=== PATIENT | female | born 1945 | race Caucasian/White ===

== ENCOUNTER 2017-09-18 10:56 | Emergency (ER) | payer OTHER ==
[~2017-09-18] VITALS: Wt 85.7 kg
[~2017-09-18 10:56] MED LIST: BUSPAR DIVIDOSE15 MG PO; CALCIUM WITH D1 CTB PO; EMPIRIN325 MG PO; LEXAPRO10 MG PO; LISINOPRIL10 MG PO; METOPROLOL SR50 MG PO; MULTIVITAMIN1 CTB PO; OMEGA 31000 MG PO; PLAVIX75 MG PO; PRILOSEC20 MG PO; SIMVASTATIN80 MG PO
[2017-09-18 11:01] VITALS: BP 146/47
[2017-09-18] MEDS ORDERED: Synthroid,Levo25 MCG PO (11:02)
== END 2017-09-18 13:26 | disposition home or self-care (01) ==
LOC: ED 10:56
DX: Z04.1 Encounter for examination and observation following transport accident (principal); R51 Headache; M54.5 Low back pain; M25.511 Pain in right shoulder; Z95.1 Presence of aortocoronary bypass graft; Z95.5 Presence of coronary angioplasty implant and graft; Z98.890 Other specified postprocedural states; Z98.51 Tubal ligation status; Z79.899 Other long term (current) drug therapy; Z88.5 Allergy status to narcotic agent; Z88.0 Allergy status to penicillin; Z79.82 Long term (current) use of aspirin; Z79.01 Long term (current) use of anticoagulants; V49.88XA Car occupant (driver) (passenger) injured in other specified transport accidents, initial encounter; Y93.89 Activity, other specified; Y92.413 State road as the place of occurrence of the external cause; Y99.9 Unspecified external cause status

== ENCOUNTER → 2018-02-27 | Outpatient (CLI) | payer OTHER ==
[~2018-02-27] MED LIST changes: +Synthroid,Levo25 MCG PO
[2018-02-27 13:09] LABS: CHLORIDE 107 mmol/L (98-107); POTASSIUM 5.1 mmol/L (3.5-5.1); SODIUM 140 mmol/L (136-145)
[2018-02-27 13:32] LABS: ALBUMIN 3.7 gm/dl (3.1-4.5); ALKALINE PHOSPHATASE 98 U/L (45-117); BUN 20 mg/dl (7-24); CHOLESTEROL 305 mg/dL (<200); CREATININE 0.94 mg/dL (0.55-1.02); FREE T4 0.68 ng/dl (0.76-1.46); HDL CHOLESTEROL 36 mg/dl (40-60); LDL CHOLESTEROL 222 mg/dL (9-159); SGOT/AST 15 IU/L (3-35); SGPT/ALT 16 U/L (12-78); TRIGLYCERIDES 233 mg/dl (<150); VLDL CHOLESTEROL 47 mg/dL (6-40)
[2018-02-28 06:07] LABS: FREE T3 010389 2.6 pg/mL (2.0-4.4)
[2018-03-03 14:10] LABS: T3 REVERSE 070104 7.6 ng/dL (9.2-24.1)
== END | disposition home or self-care (01) ==
LOC: LAB 12:05
PROVIDERS: Nurse Practitioner
DX: I25.10 Atherosclerotic heart disease of native coronary artery without angina pectoris (principal); E78.2 Mixed hyperlipidemia; R73.09 Other abnormal glucose; E27.9 Disorder of adrenal gland, unspecified; E55.9 Vitamin D deficiency, unspecified; E03.9 Hypothyroidism, unspecified

== ENCOUNTER → 2019-04-25 | Outpatient (CLI) | payer OTHER ==
[2019-04-25 12:05] LABS: BASO # 0.1 10*3/uL (0.0-0.1); EOS # 0.3 10*3/uL (0.0-0.4); EOS % 4.1 % (1.0-4.0); HEMATOCRIT 37.9 % (37.0-47.0); HEMOGLOBIN 11.4 g/dl (12.0-16.0); LYMPH # 1.6 10*3/uL (1.3-4.4); LYMPH % 19.3 % (27.0-41.0); MEAN CELL VOLUME 92.4 fl (81.0-99.0); MEAN CORPUSCULAR HGB 27.8 pg (27.0-31.0); MEAN CORPUSCULAR HGB CONC 30.1 g/dl (33.0-37.0); MEAN PLATELET VOLUME 10.3 fl (9.6-12.3); MONO # 0.6 10*3/uL (0.1-1.0); MONO % 7.5 % (3.0-9.0); NEUT # 5.5 10*3/uL (2.3-7.9); NEUT % 67.6 % (47.0-73.0); PLATELET COUNT AUTOMATED 327 10*3/uL (130-400); RED CELL DISTRI WIDTH 15.2 % (0-14.5); WHITE BLOOD COUNT 8.1 10*3/uL (4.8-10.8)
[2019-04-25 12:17] LABS: BUN 13 mg/dl (7-24); CHLORIDE 109 mmol/L (98-107); CREATININE 0.89 mg/dL (0.55-1.02); POTASSIUM 3.6 mmol/L (3.5-5.1); SODIUM 141 mmol/L (136-145)
[2019-04-25 12:36] LABS: INTERNATIONAL NORM RATIO 0.9 (2.0-3.5)
== END | disposition home or self-care (01) ==
LOC: LAB 11:00
PROVIDERS: Physician Assistant Medical
DX: D75.82 Heparin induced thrombocytopenia (HIT) (principal); Z79.01 Long term (current) use of anticoagulants

== ENCOUNTER → 2019-05-01 | Outpatient (CLI) | payer OTHER ==
[2019-05-01 10:47] LABS: INTERNATIONAL NORM RATIO 0.9 (2.0-3.5)
[2019-05-02 17:08] LABS: HEPARIN INDUCED PLATELET AB 0.337 OD (0.000-0.400)
== END | disposition home or self-care (01) ==
LOC: LAB 04-30 15:26
PROVIDERS: Physician Assistant Medical
DX: D75.82 Heparin induced thrombocytopenia (HIT) (principal); D68.8 Other specified coagulation defects; Z79.01 Long term (current) use of anticoagulants

== ENCOUNTER 2019-06-06 14:22 | Inpatient (IN) | payer OTHER ==
[2019-06-06] VITALS (7 sets, daily range): BP systolic 104–150; BP diastolic 43–60
[~2019-06-06] VITALS: Ht 160 cm; Wt 75.8 kg
[~2019-06-06 14:22] MED LIST changes: -LISINOPRIL10 MG PO; +PRINIVIL20 M1 PO
--- NOTE | 2019-06-06 14:33 | NUR ---
PATIENT WAS NOT INITIALLY TRIAGED WITH ACS PROTOCOL IN PLACE. I WENT INTO THE ROOM AND WAS ASSESSING THE PATIENT I NOTICED AN OLD MIDSTERNAL INCISION. PT REPORTS SHE HAS HAD 3 OPEN HEART SURGERIES. ALSO MENTIONS THAT SHE HAS HAD A FEW EPISODES IN THE LAST WEEK OF INTERMITTENT CHEST PAIN. AT THIS TIME I DECIDED TO INITIATE ACS PROTOCOL. THIS WAS THE REASON FOR THE DELAY.
[2019-06-06 15:03] LABS: BASO # 0.1 10*3/uL (0.0-0.1); BASO % 0.9 % (0.0-1.0); EOS # 0.2 10*3/uL (0.0-0.4); EOS % 3.2 % (1.0-4.0); HEMATOCRIT 33.2 % (37.0-47.0); HEMOGLOBIN 9.9 g/dl (12.0-16.0); LYMPH # 1.6 10*3/uL (1.3-4.4); LYMPH % 24.7 % (27.0-41.0); MEAN CELL VOLUME 89.2 fl (81.0-99.0); MEAN CORPUSCULAR HGB 26.6 pg (27.0-31.0); MEAN CORPUSCULAR HGB CONC 29.8 g/dl (33.0-37.0); MEAN PLATELET VOLUME 10.1 fl (9.6-12.3); MONO # 0.6 10*3/uL (0.1-1.0); MONO % 8.6 % (3.0-9.0); NEUT # 4.1 10*3/uL (2.3-7.9); NEUT % 62.3 % (47.0-73.0); PLATELET COUNT AUTOMATED 255 10*3/uL (130-400); RED BLOOD COUNT 3.72 10*6/uL (4.10-5.10); WHITE BLOOD COUNT 6.5 10*3/uL (4.8-10.8)
[2019-06-06 15:15] LABS: INTERNATIONAL NORM RATIO 1.7 (2.0-3.5)
[2019-06-06 15:19] LABS: ALBUMIN 3.2 gm/dl (3.1-4.5); CREATININE 1.09 mg/dL (0.55-1.02); POTASSIUM 4.1 mmol/L (3.5-5.1); TOTAL PROTEIN 6.8 gm/dL (6.4-8.2)
--- NOTE | 2019-06-06 15:23 | NUR ---
THOR @ 0.065 PER LAB,LALITHA MURRELL PA-C NOTIFIED.
[2019-06-06 15:24] LABS: TROPONIN I 0.065 ng/ml (<0.045)
--- NOTE | 2019-06-06 17:50 | NUR ---
PT IS STABLE AND READY FOR ADMISSION TO INPATIENT ROOM #522
--- NOTE | 2019-06-06 18:00 | NUR ---
A 73, admitted to , under the services of GUS Bella DO with a diagnosis of PNEUMONIA. Chief complaint is SOB. Patient arrived via ambulatory from ER. Monitor applied. Initial assessment completed. Vital signs taken and recorded. GUS BELLA DO notified of admission to the unit. Orders received. See assessment for past medical history, medications and allergies. Patient and/or family oriented to unit. [facility] visitation policy reviewed. Clothing/patient valuable form completed. JORDYN MONACO
[2019-06-06] MEDS ORDERED: WARFARIN SOD5 MG PO (18:38)
[2019-06-06] MEDS ORDERED: WARFARIN SODIUM1 MG PO (18:38)
[2019-06-06] MEDS ORDERED: POTASSIUM CHLO20 ME3 PO (18:39)
[2019-06-06] MEDS ORDERED: HYDR25T PO (18:40)
[2019-06-06] MEDS ORDERED: LASIX40 MG PO (18:40)
[2019-06-06] MEDS ORDERED: ALBUTEROL0.63 MG/3 INH (18:41)
[2019-06-06] MEDS ORDERED: ZITHROMAX500 MG PO (18:42)
--- NOTE | 2019-06-06 18:55 | NUR ---
DR. MARRERO NOTIFIED OF PT'S ALLERGIC REACTION TO LEVOFLAXIN. BENADRYL WILL BE ORDERED. D/C CURRENT IV SITE. HOLD VANCOMYCIN FOR AN HOUR.
--- NOTE | 2019-06-06 19:20 | NUR ---
DR. PAULINO'S OFFICE NOTIFIED OF NEW CONSULT.
--- NOTE | 2019-06-06 19:23 | NUR ---
DR. ALVES'S ANSWERING SERVICE NOTIFIED OF NEW CONSULT.
[2019-06-07] VITALS: BP 117/46
--- NOTE | 2019-06-07 01:08 | NUR ---
NOTIFIED OF CRITICAL TROPONIN, 0.069. NO NEW ORDERS RECEIVED.WILL CONTINUE TO MONITOR.
--- NOTE | 2019-06-07 02:43 | NUR ---
24 HR chart check completed.
[2019-06-07 03:19] LABS: BILIRUBIN NEGATIVE (NEGATIVE); BLOOD NEGATIVE (NEGATIVE); CLARITY CLEAR (CLEAR); COLOR YELLOW (YELLOW); GLUCOSE NEGATIVE (NEGATIVE); KETONE NEGATIVE (NEGATIVE); LEUKO ESTERASE NEGATIVE (NEGATIVE); NITRITE NEGATIVE (NEGATIVE); PH 5.5 (5.0-9.0); UROBILINOGEN 0.2 E.U./dl (0.2-1.0)
[2019-06-07 03:31] LABS: EPITHELIAL CELLS 0-2; HYALINE CAST 0-2; RBC 0-2 rbc/hpf (0-2); WBC 0-2 wbc/hpf (0-5)
[2019-06-07 06:40] LABS: BASO # 0.1 10*3/uL (0.0-0.1); EOS # 0.2 10*3/uL (0.0-0.4); EOS % 3.9 % (1.0-4.0); HEMATOCRIT 31.2 % (37.0-47.0); HEMOGLOBIN 9.3 g/dl (12.0-16.0); LYMPH # 1.7 10*3/uL (1.3-4.4); LYMPH % 27.7 % (27.0-41.0); MEAN CELL VOLUME 86.9 fl (81.0-99.0); MEAN CORPUSCULAR HGB 25.9 pg (27.0-31.0); MEAN CORPUSCULAR HGB CONC 29.8 g/dl (33.0-37.0); MEAN PLATELET VOLUME 10.4 fl (9.6-12.3); MONO # 0.6 10*3/uL (0.1-1.0); MONO % 9.7 % (3.0-9.0); NEUT # 3.5 10*3/uL (2.3-7.9); NEUT % 57.5 % (47.0-73.0); PLATELET COUNT AUTOMATED 241 10*3/uL (130-400); RED BLOOD COUNT 3.59 10*6/uL (4.10-5.10); RED CELL DISTRI WIDTH 14.9 % (0-14.5); WHITE BLOOD COUNT 6.1 10*3/uL (4.8-10.8)
[2019-06-07 07:11] LABS: BUN 17 mg/dl (7-24); CHLORIDE 109 mmol/L (98-107); CHOLESTEROL 179 mg/dL (<200); CREATININE 0.96 mg/dL (0.55-1.02); HDL CHOLESTEROL 43 mg/dl (40-60); LDL CHOLESTEROL 106 mg/dL (9-159); PHOSPHOROUS 4.3 mg/dL (2.5-4.9); POTASSIUM 3.8 mmol/L (3.5-5.1); SODIUM 141 mmol/L (136-145); TRIGLYCERIDES 152 mg/dl (<150); VLDL CHOLESTEROL 30 mg/dL (6-40)
[2019-06-07 12:00] VITALS: BP 101/50; BP 128/87
--- NOTE | 2019-06-07 12:05 | NUR ---
Occupational Therapy referral received and screen completed. Patient reports that she had a month of rehab, then home health and did not feel she needed any therapy in the hospital at this time. She is able to move independently to the bathroom and perform independent bed mobility. She would like to resume her home therapy upon d/c. Nurse has no concerns for patient's safety. Recommend discharge OT referral. Thank you Andie Bentley OTr/Tony
--- NOTE | 2019-06-07 12:07 | NUR ---
PHYSICAL THERAPY Physical therapy evaluation received. Pt is independent with ambulation and ADLs without an AD. Pt expressing no concerns and nursing agreed. Pt has no PT needs at this time. thank you Micaela Kennedy, PT, DPT
--- NOTE | 2019-06-07 12:19 | NUR ---
Dry Finisher in to talk to patient. Patient states lives at HOME with ALONE. There are NO steps in the home. Physician: SUE SCHMID Pharmacy: [facility] Home health services: NONE Patient's level of ADLs: INDEPENDENT Patient has working utilities: YES DME: WALKER IF SHE NEEDS IT, POTTY CHAIR, NEBULIZER Follow-up physician's appointment after d/c: WILL BE MADE BY HOSPITALIST NURSE DIRECTOR ON DISCHARG Does patient want to access PORTAL?: NO Discharge plan PT LIVES IN AN APARTMENT ON ONE FLOOR ALONE. TALKED WITH PT ABOUT HOME HEALTH BUT SHE STATES SHE HAD THEM AFTER HER SURGERY FOR 3 WEEKS BUT DOES NOT FEEL LIKE SHE NEEDS THEM NOW. STATES SHE WILL RETURN HOME WHEN MEDICALLY STABLE WITH NO NEEDS. STATES HER DAUGHTER CHECKS IN ON HER. WILL CONTINUE TO FOLLOW. WILL HAVE A RIDE HOME ON DISCHARGE.. ABIGAIL HERNANDEZ
[2019-06-07] MEDS ORDERED: LOPRESSOR50 M1 PO (14:38)
[2019-06-07] MEDS ORDERED: PROTONIX TR40 MG PO (14:39)
[2019-06-07] MEDS ORDERED: PAROXETINE40 MG PO (14:40)
[2019-06-07] MEDS ORDERED: DHEA PO (14:43)
[2019-06-07] MEDS ORDERED: [UNRECOGNIZED DRUG - OTHER] (14:45)
[2019-06-07] MEDS ORDERED: 'XANAX0.5 MG PO (14:46)
[2019-06-07] MEDS ORDERED: B COMPLEX1 EACH PO (14:47)
[2019-06-07] MEDS ORDERED: PREGNENOLONE5 GM PO (14:48)
[2019-06-07] MEDS ORDERED: CRESTOR20 M1 PO (14:49)
[2019-06-07] MEDS ORDERED: TOLTERODINE TART2 M3 PO (14:49)
[2019-06-07] MEDS ORDERED: VITAMIN D22000 UNIT PO (14:50)
--- NOTE | 2019-06-07 14:51 | NUR ---
MED REC UP TO DATE PER LIST FROM [facility].
--- NOTE | 2019-06-07 15:30 | NUR ---
Nursing screen received and occupational therapy referral received. Thank you. Andie Bentley OTR/L
[2019-06-07 16:00] VITALS: BP 116/50
[2019-06-07 20:00] VITALS: BP 132/66
[2019-06-08] VITALS: BP 133/43
[2019-06-08 06:51] LABS: BASO % 0.7 % (0.0-1.0); EOS # 0.2 10*3/uL (0.0-0.4); HEMATOCRIT 31.4 % (37.0-47.0); HEMOGLOBIN 9.5 g/dl (12.0-16.0); LYMPH # 1.6 10*3/uL (1.3-4.4); LYMPH % 29.2 % (27.0-41.0); MEAN CELL VOLUME 86.7 fl (81.0-99.0); MEAN CORPUSCULAR HGB 26.2 pg (27.0-31.0); MEAN CORPUSCULAR HGB CONC 30.3 g/dl (33.0-37.0); MEAN PLATELET VOLUME 10.1 fl (9.6-12.3); MONO # 0.5 10*3/uL (0.1-1.0); MONO % 9.7 % (3.0-9.0); NEUT # 3.2 10*3/uL (2.3-7.9); NEUT % 57.2 % (47.0-73.0); PLATELET COUNT AUTOMATED 251 10*3/uL (130-400); RED BLOOD COUNT 3.62 10*6/uL (4.10-5.10); RED CELL DISTRI WIDTH 15.1 % (0-14.5); WHITE BLOOD COUNT 5.6 10*3/uL (4.8-10.8)
[2019-06-08 06:56] LABS: BUN 14 mg/dl (7-24); CHLORIDE 110 mmol/L (98-107); CREATININE 0.92 mg/dL (0.55-1.02); SODIUM 142 mmol/L (136-145)
[2019-06-08 07:40] LABS: INTERNATIONAL NORM RATIO 1.9 (2.0-3.5)
[2019-06-08 08:00] VITALS: BP 106/52
[2019-06-08 12:00] VITALS: BP 124/97
--- NOTE | 2019-06-08 12:31 | NUR ---
PT CONTINUES TO DENY NEEDS ON DISCHARGE AND WILL RETURN HOME WHEN MEDICALLY STABLE. WILL CONTINUE TO FOLLOW.
[2019-06-08] MEDS ORDERED: MUCINEX ER600 MG PO (15:25)
--- NOTE | 2019-06-08 17:57 | NUR ---
[facility] Discharge instructions reviewed with patient/family. Patient receptive and verbalizes understanding. Follow-up care arranged. Written instructions given to patient/family. ISMAEL ENRIQUE
== END 2019-06-08 17:57 | disposition home or self-care (01) | DRG 193 ==
LOC: ED 14:22 → EDHOLD 17:11 → 5E 17:11
PROVIDERS: Physician Assistant; Student in an Organized Health Care Education/Training Program; ADMIT Internal Medicine
DX: J18.1 Lobar pneumonia, unspecified organism (principal); N17.0 Acute kidney failure with tubular necrosis; J44.0 Chronic obstructive pulmonary disease with (acute) lower respiratory infection; E44.0 Moderate protein-calorie malnutrition; I25.810 Atherosclerosis of coronary artery bypass graft(s) without angina pectoris; F41.9 Anxiety disorder, unspecified; D64.9 Anemia, unspecified; E78.5 Hyperlipidemia, unspecified; D72.810 Lymphocytopenia; E11.65 Type 2 diabetes mellitus with hyperglycemia; E03.9 Hypothyroidism, unspecified; I10 Essential (primary) hypertension; F33.41 Major depressive disorder, recurrent, in partial remission; Z88.0 Allergy status to penicillin; Z88.2 Allergy status to sulfonamides; Z95.1 Presence of aortocoronary bypass graft; Z98.41 Cataract extraction status, right eye; Z90.49 Acquired absence of other specified parts of digestive tract; Z98.51 Tubal ligation status; Z83.3 Family history of diabetes mellitus; Z82.49 Family history of ischemic heart disease and other diseases of the circulatory system; Z82.3 Family history of stroke; Z80.9 Family history of malignant neoplasm, unspecified; Z79.82 Long term (current) use of aspirin; Z79.899 Other long term (current) drug therapy; I25.2 Old myocardial infarction; Z68.29 Body mass index [BMI] 29.0-29.9, adult

== ENCOUNTER → 2019-07-16 | Outpatient (CLI) | payer OTHER ==
[~2019-07-16] MED LIST changes: +'XANAX0.5 MG PO; +ALBUTEROL0.63 MG/3 INH; +B COMPLEX1 EACH PO; +CRESTOR20 M1 PO; +DHEA PO; +HYDR25T PO; +LASIX40 MG PO; +LOPRESSOR50 M1 PO; +MUCINEX ER600 MG PO; +PAROXETINE40 MG PO; +POTASSIUM CHLO20 ME3 PO; +PREGNENOLONE5 GM PO; +PROTONIX TR40 MG PO; +TOLTERODINE TART2 M3 PO; +VITAMIN D22000 UNIT PO; +WARFARIN SOD5 MG PO; +WARFARIN SODIUM1 MG PO; +ZITHROMAX500 MG PO; +[UNRECOGNIZED DRUG - OTHER]
== END | disposition home or self-care (01) ==
LOC: US 10:00
DX: I65.29 Occlusion and stenosis of unspecified carotid artery (principal); R55 Syncope and collapse; I10 Essential (primary) hypertension; R42 Dizziness and giddiness

== ENCOUNTER → 2019-12-27 | Outpatient (CLI) | payer OTHER | END | disposition home or self-care (01) | LOC: US 13:57 | DX: R60.0 Localized edema (principal); M79.662 Pain in left lower leg; M79.661 Pain in right lower leg ==

== ENCOUNTER → 2020-03-25 | Outpatient (CLI) | payer OTHER ==
[2020-03-25 14:32] LABS: ALBUMIN 3.6 gm/dl (3.1-4.5); CREATININE 1.11 mg/dL (0.55-1.02); FREE T4 1.04 ng/dl (0.76-1.46); POTASSIUM 4.4 mmol/L (3.5-5.1); TOTAL PROTEIN 7.1 gm/dL (6.4-8.2)
[2020-03-25 14:37] LABS: THYROID STIM HORMONE (HS) 0.878 uIU/ml (0.358-4.75)
== END | disposition home or self-care (01) ==
LOC: LAB 03-24 11:36
PROVIDERS: Nurse Practitioner
DX: E78.5 Hyperlipidemia, unspecified (principal); E03.9 Hypothyroidism, unspecified; R73.01 Impaired fasting glucose